=== PATIENT | female | born 1960 | race Caucasian/White ===

== ENCOUNTER 2022-05-30 19:57 | Emergency (ER) | payer BC ==
--- NOTE | 2022-05-30 20:49 | ED Physician Documentation ---
PD HPI ABD PAIN - Stated complaint Stated Complaint: ABD PX/LOW BACK PX - Chief complaint Chief Complaint: Abd Pain - History obtained from History obtained from: Patient - History of Present Illness Timing - onset: How many days ago (2) Timing - details: Abrupt onset, Intermittant Pain level now: 6 Quality: Pain Location: RLQ Radiation: Other (right upperparalumbar), Right flank Improved by: Other (nothing) Worsened by: Other (no exacerbating factors) Associated symptoms: Nausea (resolved), Vomiting (resolved). No: Fever, Diarrhea, Constipation Recently seen: Not recently seen - Additional information Additional information: 2 days ago, patient had sudden onset RLQ pain radiating to right flank and right upper paralumbar region, with nausea and vomiting, diaphoresis. This resolved same day without specific intervention. She had recurrence of these symptoms today at approximately 4 PM while at home at rest. The pain today is not as severe and not associated with nausea, vomiting. She had one previous episode similar to these episodes; this was a few years ago, saw PMD and per patient's description, no testing was performed as the symptoms had resolved and the suspected diagnosis was a passed kidney stone. She also notes that when she had her gallbladder removed, an incidental note of kidney stones was made. Review of Systems Constitutional: denies: Fever, Chills, Sweats Cardiac: reports: Reviewed and negative Respiratory: reports: Reviewed and negative GI: reports: Abdominal Pain. denies: Nausea (with episode 2 days ago, not today), Vomiting (with episode two days ago, not today), Constipation, Diarrhea : denies: Dysuria, Frequency, Hematuria PD PAST MEDICAL HISTORY - Past Medical History Past Medical History: Yes Musculoskeletal: Osteoarthritis Other Past Medical History: B12 deficiency - Past Surgical History Past Surgical History: Yes General: Cholecystectomy - Present Medications Home Medications: Ambulatory Orders Medication Instructions Recorded Confirmed HYDROcod/ACETAM 5/325 [Leland 5/325] 1 - 2 tablet PO Q6H PRN #14 tablet 05/30/22 Ondansetron Odt [Zofran] 4 mg TL Q6H PRN #10 tablet 05/30/22 - Allergies Allergies/Adverse Reactions: Allergies Allergy/AdvReac Type Severity Reaction Status Date / Time Penicillins Allergy Hives Verified 05/30/22 20:08 Sulfa (Sulfonamide Allergy Hives Verified 05/30/22 20:08 Antibiotics) - Social History Does the pt smoke?: No Smoking Status: Never smoker Does the pt drink ETOH?: Yes ETOH Use: Wine Does the pt have substance abuse?: No - Immunizations Immunizations are current?: Yes - POLST Patient has POLST: No PD ED PE NORMAL - Vitals Vital signs reviewed: Yes - General General: Alert and oriented X 3, No acute distress, Well developed/nourished - Cardiac Cardiac: RRR, No murmur - Respiratory Respiratory: No respiratory distress, Clear bilaterally - Abdomen Abdomen: Normal bowel sounds, Soft, Non tender, Non distended - Back Back: No CVA TTP - Derm Derm: No rash Results - Vitals Vitals: Oxygen O2 Source Room air - Labs Labs: Laboratory Tests 05/30/22 05/30/22 05/30/22 20:21 20:37 21:08 WBC 10.8 RBC 4.68 Hgb 13.6 Hct 43.4 MCV 92.7 MCH 29.1 MCHC 31.3 L RDW 13.8 Plt Count 238 MPV 10.4 Neut # (Auto) 7.9 H Lymph # (Auto) 2.0 Alfalfa # (Auto) 0.7 Eos # (Auto) 0.2 Baso # (Auto) 0.1 Absolute Nucleated RBC 0.00 Nucleated RBC % 0.0 Sodium Potassium Chloride Carbon Dioxide Anion Gap BUN Creatinine Estimated GFR (MDRD) Glucose Calcium Total Bilirubin AST ALT Alkaline Phosphatase Total Protein Albumin Globulin Albumin/Globulin Ratio Lipase Urine Color YELLOW Cancelled Urine Clarity HAZY Cancelled Urine pH 6.0 Cancelled Ur Specific Outing >=1.030 H Cancelled Urine Protein NEGATIVE Cancelled Urine Glucose (UA) NEGATIVE Cancelled Urine Ketones NEGATIVE Cancelled Urine Occult Blood MODERATE H Cancelled Urine Nitrite NEGATIVE Cancelled Urine Bilirubin NEGATIVE Cancelled Urine Ictotest Cancelled Urine Urobilinogen 0.2 (NORMAL) Cancelled Ur Leukocyte Esterase NEGATIVE Cancelled Urine RBC 6-10 H Urine WBC 0-3 Ur Squamous Epith Cells MANY Squamous H Amorphous Sediment Marked Urine Bacteria Moderate H Ur Microscopic Review INDICATED Cancelled Urine Culture Comments NOT INDICATED Cancelled 05/30/22 21:08 WBC RBC Hgb Hct MCV MCH MCHC RDW Plt Count MPV Neut # (Auto) Lymph # (Auto) Alfalfa # (Auto) Eos # (Auto) Baso # (Auto) Absolute Nucleated RBC Nucleated RBC % Sodium 141 Potassium 3.9 Chloride 105 Carbon Dioxide 26 Anion Gap 10.0 BUN 12 Creatinine 1.0 Estimated GFR (MDRD) 56 L Glucose 125 H Calcium 9.3 Total Bilirubin 0.7 AST 19 ALT 20 Alkaline Phosphatase 67 Total Protein 8.0 Albumin 4.1 Globulin 3.9 Albumin/Globulin Ratio 1.1 Lipase 34 Urine Color Urine Clarity Urine pH Ur Specific Outing Urine Protein Urine Glucose (UA) Urine Ketones Urine Occult Blood Urine Nitrite Urine Bilirubin Urine Ictotest Urine Urobilinogen Ur Leukocyte Esterase Urine RBC Urine WBC Ur Squamous Epith Cells Amorphous Sediment Urine Bacteria Ur Microscopic Review Urine Culture Comments PD MEDICAL DECISION MAKING - ED course Complexity details: reviewed results, re-evaluated patient, considered differential, d/w patient ED course: HPI and findings on UA (hematuria) are strongly s/o renal colic. Her symptoms resolved prior to this H+P/evaluation. Her blood tests (CBC, ER abdominal panel) are without remarkable/concerning findings. We discussed CT A/P to confirm diagnosis and provide some idea as to prognosis; patient prefers to not undergo this study at this time, given the confidence in diagnosis (she understands it is likely though not certain). Return precautions reviewed, and she will return to ED (or nearest ED) if pain recurs and does not respond to the prescribed medication (I provided rx for vicodin as well as zofran to be used if symptoms recur). I am prescribing a short course of short-acting opioid pain medication for this patient. I have reviewed the patients SCALE ADJUSTER and no concerning findings were noted. I have discussed that the opioids are for short term therapy only, and will not be refilled from the ED Departure - Departure Disposition: 01 Home, Self Care Clinical Impression: Flank pain Condition: Good Instructions: ED Stone Renal W Colic Follow-Up: Vee Burkett MD [Primary Care Provider] - Prescriptions: HYDROcod/ACETAM 5/325 [Leland 5/325] 1 - 2 tablet PO Q6H PRN #14 tablet PRN Reason: Pain Ondansetron Odt [Zofran] 4 mg TL Q6H PRN #10 tablet PRN Reason: Nausea / Vomiting Comments: Since a CT scan was not done tonight, the diagnosis of renal colic (kidney stone causing the pain) is suspected diagnosis and not confirmed. The description, location, and episodic nature of your symptoms, combined with the blood in the urine sample, are very suggestive of renal colic. Follow up with your primary care provider for reevaluation and possible further testing. Return to the ER if your symptoms worsen, or if you develop new/concerning signs/symptoms (such as fever, generalized abdominal pain). Prescriptions for vicodin (narcotic pain medication) and ondansetron (anti- nausea medication) have been electronically submitted to the [facility] pharmacy in [place]. I am prescribing a short course of narcotic pain medication for you. These are potentially dangerous and addictive medications that should be used carefully. These medications may constipate you. Take an [id number] stool softener (docusate) twice daily with plenty of water while taking these medications. If you go 24 hours without a bowel movement, take [id number] miralax, per package instructions. Do not drink or drive while taking these medications. If you received narcotic or sedating medications while in the emergency department, do not drive for 24 hours. Store this medication in a safe, secure place and out of reach of children. It is a violation of federal law to give or sell this medication to another person or to use in a manner other than prescribed. The ED will not refill narcotic prescriptions, including prescriptions lost or stolen. To dispose of unwanted medications: 1. [facility] at [address] in [place] has a medication drop box. They accept prescription medications (in pill form) Wednesday through Wednesday 9:00 a.m. to 5:00 p.m. 2. The [facility] [place] [employer] accepts prescription medications (in pill form only) for disposal year round. Call for more information. 3. Contact the [facility] for the next [facility] sponsored prescription drug collection event. , [phone], or [phone]; Discharge Date/Time: 05/30/22 22:35
[2022-05-30 21:08] LABS: BILIRUBIN,URINE NEGATIVE (NEGATIVE); GLUCOSE, URINE (UA) NEGATIVE (NEGATIVE); KETONES,URINE (UA) NEGATIVE (NEGATIVE); LEUKOCYTE ESTERASE, URINE NEGATIVE (NEGATIVE); NITRITE,URINE NEGATIVE (NEGATIVE); OCCULT BLOOD,URINE MODERATE (NEGATIVE); PROTEIN,URINE NEGATIVE (NEGATIVE); UROBILINOGEN,URINE 0.2 (NORMAL) E.U./dL (NORMAL)
[2022-05-30 21:11] LABS: CLARITY,URINE HAZY (CLEAR)
[2022-05-30 21:23] LABS: BASOPHILS # (AUTO) 0.1 10^3/uL (0.0-0.1); BASOPHILS % (AUTO) 0.5 %; EOSINOPHILS # (AUTO) 0.2 10^3/uL (0.0-0.7); EOSINOPHILS % (AUTO) 1.4 %; HCT - HEMATOCRIT 43.4 % (37.0-47.0); HGB - HEMOGLOBIN 13.6 g/dL (12.0-16.0); LYMPHOCYTES % (AUTO) 18.5 %; MEAN CORPUSCULAR HEMOGLOBIN 29.1 pg (27.0-31.0); MEAN CORPUSCULAR HGB CONC 31.3 g/dL (32.0-36.0); MEAN CORPUSCULAR VOLUME 92.7 fL (81.0-99.0); MEAN PLATELET VOLUME 10.4 fL (7.9-10.8); MONOCYTES # (AUTO) 0.7 10^3/uL (0.0-1.0); MONOCYTES % (AUTO) 6.2 %; NEUTROPHILS # (AUTO) 7.9 10^3/uL (1.5-6.6); NEUTROPHILS % (AUTO) 72.9 %; PLT - PLATELET COUNT 238 10^3/uL (130-450); RED BLOOD COUNT 4.68 10^6/uL (4.20-5.40); RED CELL DISTRIBUTION WIDTH 13.8 % (12.0-15.0); WHITE BLOOD COUNT 10.8 x10^3/uL (4.8-10.8)
[2022-05-30 21:27] LABS: AMORPHOUS SEDIMENT,UR Marked /LPF; BACTERIA,URINE Moderate /HPF (None Seen); SQUAMOUS EPITHELIAL CELL,UR MANY Squamous (<= Few); WBC,URINE 0-3 /HPF (0-5)
[2022-05-30 21:34] LABS: ALBUMIN 4.1 g/dL (3.2-5.5); ALBUMIN/GLOBULIN RATIO 1.1 (1.0-2.2); BILIRUBIN,TOTAL 0.7 mg/dL (0.2-1.0); CALCIUM 9.3 mg/dL (8.5-10.3); POTASSIUM 3.9 mmol/L (3.5-5.0)
[2022-05-30] MEDS ORDERED: KETOROLAC 30 MG/ML VIAL IVP STA (22:12)
[2022-05-30] MEDS ORDERED: ONDANSETRON ODT 4 MG Prepack 2 TL PRN (22:22)
[2022-05-30] MEDS ORDERED: HYDROcod/ACET 5/325 Prepack 4 PO STA (22:22)
[2022-05-30 22:36] VITALS: BP 182/95
== END 2022-05-30 22:35 | disposition home or self-care (01) ==
LOC: ED 19:57
DX: R10.31 Right lower quadrant pain (principal); R31.9 Hematuria, unspecified
CPT/HCPCS: 36415; 80053; 81001; 81003; 83690; 85025; 87086; 96374; 99284